=== PATIENT | male | born 2000 | race Two or more races ===

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

== ENCOUNTER 2019-02-21 20:04 | Emergency (ER) | payer OTHER ==
[2019-02-21] MEDS ORDERED: KETOROLAC 60 MG/2 ML VIAL IM STA (20:25)
--- NOTE | 2019-02-21 20:27 | ED Physician Documentation ---
History of Present Illness - Stated complaint Stated Complaint: LT SHOULDER PX/INJ - Chief complaint Chief Complaint: Heent - History obtained from History obtained from: Patient - History of Present Illness Timing: Enter time (19:30), Today Pain level now: 8 Improved by: rest Worsened by: movement involving LUE at shoulder (particularly abduction, external rotation) - Additonal information Additional information: sudden onset left shoulder pain when playing softball, onset was when he was swinging at the ball. There was an associated popping sensation/sound Review of Systems Musculoskeletal: reports: Joint pain. denies: Neck pain, Back pain, Extremity swelling, Joint swelling Neurologic: denies: Focal weakness, Numbness PD PAST MEDICAL HISTORY - Past Medical History Past Medical History: Yes Cardiovascular: None Respiratory: None Neuro: None Endocrine/Autoimmune: None GI: None : None HEENT: None Psych: None Musculoskeletal: None Derm: None - Past Surgical History Past Surgical History: Yes Ortho: Arthroscopic surgery, Other - Present Medications Home Medications: Ambulatory Orders Medication Instructions Recorded Confirmed Ibuprofen 600 mg PO Q6HR PRN #20 tablet 02/21/19 - Allergies Allergies/Adverse Reactions: Allergies Allergy/AdvReac Type Severity Reaction Status Date / Time No Known Drug Allergies Allergy Verified 11/28/17 16:14 - Social History Does the pt smoke?: Yes Smoking Status: Light tobacco smoker Does the pt drink ETOH?: No Does the pt have substance abuse?: No - Immunizations Immunizations are current?: Yes - POLST Patient has POLST: No PD ED PE NORMAL - Vitals Vital signs reviewed: Yes - General General: Alert and oriented X 3, No acute distress, Well developed/nourished - Respiratory Respiratory: No respiratory distress, Clear bilaterally - Extremities Extremities: No deformity, No tenderness to palpate, No edema - Neuro Neuro: No motor deficit, No sensory deficit PD ED PE EXPANDED - Extremities Extremities: Limited ROM (left shoulder with limited abduction, internal/external rotation due to pain). No: Deformity, Tenderness, Swelling Results - Vitals Vitals: Vital Signs - 24 hr 02/21/19 02/21/19 20:07 21:49 Temperature 36.9 C 36.7 C Heart Rate 55 L 54 L Respiratory 16 14 Rate Blood Pressure 140/81 H 119/67 O2 Saturation 98 98 Oxygen O2 Source Room air - Rads (name of study) left shoulder xrays Radiology: Prelim report reviewed, See rad report PD MEDICAL DECISION MAKING - ED course Complexity details: reviewed old records, reviewed results, re-evaluated patient, considered differential, d/w patient Departure - Departure Disposition: 01 Home, Self Care Clinical Impression: Left shoulder strain Condition: Good Instructions: ED Sprain Shoulder, ED Sling Follow-Up: CAMILLE GAITAN MD [Primary Care Provider] - (within 1 week if symptoms do not improve (within next 3 days) and then resolve within 1 week) Prescriptions: Ibuprofen 600 mg PO Q6HR PRN #20 tablet PRN Reason: Pain Discharge Date/Time: 02/21/19 21:54
--- NOTE | 2019-02-21 21:21 | XRAY Report ---
Reason: injury, pain, tenderness Procedure Date: 02/21/2019 Accession Number: [id number] / [id number] Procedure: XR - Shoulder 3 View LT CPT Code: FULL RESULT: EXAM: LEFT SHOULDER RADIOGRAPHY EXAM DATE: 02/21/2019 08:55 PM. CLINICAL HISTORY: Left shoulder pain. COMPARISON: SHOULDER 3 VIEW LT 11/28/2017 5:02 PM. TECHNIQUE: 3 views. FINDINGS: Bones: Normal. No fracture or bone lesion. Joints: The glenohumeral and acromioclavicular joints are normal. Soft tissues: The visualized hemithorax is unremarkable. No soft tissue swelling. IMPRESSION: Normal shoulder radiography. [facility]
[2019-02-21 21:50] VITALS: BP 119/67
== END 2019-02-21 21:54 | disposition home or self-care (01) ==
LOC: ED 20:04
DX: S46.912A Strain of unspecified muscle, fascia and tendon at shoulder and upper arm level, left arm, initial encounter (principal); X50.0XXA Overexertion from strenuous movement or load, initial encounter; Y93.64 Activity, baseball; F17.200 Nicotine dependence, unspecified, uncomplicated
CPT/HCPCS: 96372; 99283